=== PATIENT | male | born 1970 | race Caucasian/White ===

== ENCOUNTER → 2024-02-04 10:55 | Outpatient (REF) | payer OTHER, SELFPAY | LOC: RAD 10:55 | PROVIDERS: ATTENDING PHYSICIAN Surgery; FAMILY PHYSICIAN Nurse Practitioner Acute Care | DX: R10.31 Right lower quadrant pain (principal) | CPT/HCPCS: 74176 ==

== ENCOUNTER 2024-02-28 20:59 | Emergency (ER) | payer OTHER, SELFPAY ==
[2024-02-28 21:09] VITALS: BP 95/64
[2024-02-28 22:11] VITALS: BP 115/76
--- NOTE | 2024-02-28 22:15 | ED.GENMED ---
History of Present Illness
<PETRA Cheng - Last Filed: 02/28/24 22:53>
General
Chief Complaint: Abdominal Pain
Source: patient
Exam Limitations: none
Time Seen by Provider: 02/28/24 21:58
Nursing documentation reviewed up to this point in time: agreed with
Travel History
Have you had any contact with someone who has COVID-19?: No
Do you have any symptoms of coronavirus? Fever > 100 degrees, chills, cough, shortness of breath, sore throat, loss of taste or smell, muscle aches, or headache?: No
History of Present Illness
History of Present Illness:
Patient is a 53 y/o male with history of substance abuse, COPD, GERD presenting with Right groin pain x 1 day. Patient has a history of a known right inguinal hernia that has previously been reducible and is scheduled for surgery. Patient is unaware
of exact date of surgery. Patient admits that He has had a previous hernia repair in his right groin before. Patient states the pain started last night when he was coughing. Patient states the cough makes the pain worse. Patient describes the pain
as sharp and radiates down his inner leg. Patient states this is the worst pain he has ever felt. Patient states he can feel something 'passing through' the bulge. Patient denies N/V/D/C, changes with urination, SOB, Cp, HURT, fever, chills, or change
in bowel movement. Patient is currently in a rehab facility and denies use of alcohol, tobacco or other illicit drugs.
Past History
<PETRA Cheng - Last Filed: 02/28/24 22:53>
Past History
ED Past Medical History: COPD, GERD, NC ( X 2), Psychiatric (Depression. Anxiety) and Other (Migraine)
ED Past Surgical History: Orthopedic (Right hip replacement) and Other (Bilateral hernia's)
Social History
Tobacco: Smoker
Alcohol: Former
Drug: Former user
Personal:
Living: other ([facility])
Review of Systems
<PETRA Cheng - Last Filed: 02/28/24 22:53>
Review of Systems
Constitutional: Reports no symptoms
EENT: Reports other (patient wears denture )
Respiratory: Reports cough
Cardiac: Reports no symptoms
ABD/GI: Reports abdominal pain (right groin) and other (bulge in right groin)
Skin: Reports no symptoms
Phy Exam
<PETRA Cheng - Last Filed: 02/28/24 22:53>
General Physical Exam
General Presentation: well appearing and no apparent distress
General Skin: warm and dry
General Habitus: normal
General Mental: alert
General Hydration: appears well hydrated
ENT Exam
ENT Exam: EOMI, pharynx normal, neck supple and normocephalic
Eye Exam
Eye Exam: PERRL, cornea clear and conjunctiva normal
Cardiovascular Exam
Cardiovascular Exam: regular rate/rhythm, no edema, no murmur and normal peripheral pulses
Pulmonary Exam
Pulmonary Exam: lungs clear, no respiratory distress, no rales, no crackles, no rhonchi, no stridor, no wheezing and no cough
Gastrointestinal Exam
Gastrointestinal Exam: normal bowel sounds, non tender, soft, no organomegaly, no pulsatile mass and non distended
Genitourinary Exam Male
Exam Male: normal external genitalia and other (bulge noted in right groin with tenderness to palpation, no erythema or warmth noted )
Neurological Exam
Neurological Exam: alert, oriented x3, no motor deficits and speech normal
Musculoskeletal Exam
Musculoskeletal Exam: full ROM and no edema
Skin Exam
Skin Exam: normal color, warm/dry, no rash and no petechia
Psychiatric Exam
Psychiatric Exam: normal mood/affect
Course
<PETRA Cheng - Last Filed: 02/28/24 22:53>
Vital Signs
Initial and Last Documented VS:
Initial Vital Signs
Temp Pulse Resp BP Pulse Ox
98.1 F 80 18 95/64 94
02/28/24 21:09 02/28/24 21:09 02/28/24 21:09 02/28/24 21:09 02/28/24 21:09
Last Documented Vital Signs
Temp Pulse Resp BP Pulse Ox
98.1 F 72 18 115/76 96
02/28/24 21:09 02/28/24 22:11 02/28/24 22:11 02/28/24 22:11 02/28/24 22:11
<Juanito Mena DO - Last Filed: 02/28/24 23:01>
Vital Signs
Initial and Last Documented VS:
Initial Vital Signs
Temp Pulse Resp BP Pulse Ox
98.1 F 80 18 95/64 94
02/28/24 21:09 02/28/24 21:09 02/28/24 21:09 02/28/24 21:09 02/28/24 21:09
Last Documented Vital Signs
Temp Pulse Resp BP Pulse Ox
98.1 F 72 18 115/76 96
02/28/24 21:09 02/28/24 22:11 02/28/24 22:11 02/28/24 22:11 02/28/24 22:11
<PETRA Cheng - Last Filed: 02/28/24 22:53>
MDM/Problems Addressed
Differential Diagnosis Includes:
strangulated inguinal hernia
incarcerated inguinal hernia
MDM/Problems Addressed:
right groin bulge
<PETRA Cheng - Last Filed: 02/28/24 22:53>
*Critical Care Note
Total Time (30-74mins, 75-104mins- exclusive of procedures): Not Applicable
ED Attending Note
Bayronlt;Cecilia TimPETRA - Last Filed: 02/28/24 22:53>
-
Portions of this chart may have been created with voice recognition software.� Occasional wrong word or��sound alike� substitutions may have occurred due to the inherent limitations of voice recognition software.
<Juanito Mena DO - Last Filed: 02/28/24 23:01>
ED Attending Note
Patient seen and examined by attending physician: Yes
I performed the substantive portion of visit, reviewed & personally made and approve the management plan that is documented in note by myself or ROGE.: Yes
ED Attending Note:
This a pleasant 53-year-old male that presents with right inguinal hernia pain. He has known inguinal hernia and is scheduled for surgery. He states that the surgery is in the next few weeks but is unsure of what it is. Patient reported
exacerbation of his pain last evening, while coughing. He states that when coughing the pain is severe. Currently he is in no pain. Patient resides at a rehab facility. Denies fever, chills, nausea or vomiting. States that he has normal bowel
movements. Denies changes with urination. Patient was seen in conjunction with the PA student. I have reviewed and agree with the history and treatment plan presented. On my independent physical exam, patient is awake, alert, and oriented x3, no
acute distress. Dressed and ready to go. On physical exam patient has a right inguinal hernia. It was slightly bulging but easily reducible. It was soft, and nontender to palpation or reduction. Patient has no other complaints. He will be
discharged to follow-up with general surgery. I did advise him to call the office to find out when his procedure is.
Discharge Plan
Departure
Patient Disposition: Home (Routine Discharge)
Date of Disposition: 02/28/24
Time of Disposition: 22:59
Patient with high blood pressure during this ER visit?: No
Condition: Good
Discharge Problem:
Inguinal hernia, right
Instructions: Groin Hernia (DC)
Referrals:
Pellini,Graeme M., MD [Active] - (Please call the office to determine the date of your surgery)
UNKNOWN - PT DOES,NOT KNOW [Family Provider] -
Activity Restrictions/Additional Instructions:
It was a pleasure meeting you and taking part in your care. We hope for your continued healing and wellness.
Please read discharge instructions in their entirety. However, they are for general education and may not describe your exact diagnosis at discharge. Information on your ER visit and medical conditions were discussed with you along with appropriate
follow up information...
If indicated, please take your medications as instructed and indicated on discharge paperwork.
Please schedule a follow up appointment as directed. Call to schedule an appointment
Please return to the emergency department with ANY change in, persisting, or worsening of symptoms. If any of your symptoms do not improve, or persist, or become more severe within 6-12 hours, please return to the emergency department for further
care.
Please return to the emergency department if you develop a headache, neck pain/stiffness, fever greater than 100.4F, chest pain, shortness of breath, persistent nausea, vomiting, slurred speech, difficulty walking, numbness/tingling, weakness, signs
of infection or any other symptoms that are worrisome to you.
If you have any questions or concerns please do not hesitate to call the Hospital at or E-mail me directly at [email or web address]
Interventions
Interventions:
*Risk Screen - Suicide Last Done: 02/28/24 21:09
*General Assessment Last Done: 02/28/24 22:14
*Neglect/Abuse Screening Last Done: 02/28/24 21:09
ED- Fall Risk Assessment Last Done: 02/28/24 22:13
*ED COVID-19 Vaccine History Last Done: 02/28/24 22:14
FC-Phgshp-Sxkxuubshn Assessment Last Done: 02/28/24 22:13
Discharge Date and Time
Print Language: LUXEMBOURGISH
[2024-02-28 23:02] VITALS: BP 115/76
== END 2024-02-28 23:07 | disposition home or self-care (01) ==
LOC: EMR 20:59
PROVIDERS: EMERGENCY PHYSICIAN Student in an Organized Health Care Education/Training Program
DX: K40.90 Unilateral inguinal hernia, without obstruction or gangrene, not specified as recurrent (principal); F17.200 Nicotine dependence, unspecified, uncomplicated
CPT/HCPCS: 99283

== ENCOUNTER → 2024-03-10 13:27 | Outpatient (REF) | payer OTHER, SELFPAY | LOC: HWRAD 13:27 | PROVIDERS: ATTENDING PHYSICIAN Nurse Practitioner Acute Care | DX: R06.00 Dyspnea, unspecified (principal); J44.9 Chronic obstructive pulmonary disease, unspecified | CPT/HCPCS: 71046 ==

== ENCOUNTER 2024-03-24 06:02 | Day surgery (SDC) | payer OTHER, SELFPAY ==
[2024-03-15 08:58] VITALS: BMI 21.7
[2024-03-24] VITALS (11 sets, daily range): BP systolic 98–121; BP diastolic 58–77; BMI 21.7
[2024-03-24] MEDS: TYLENOL 1000 MG PO (06:58)
[2024-03-24] MEDS: NORMOSOL-R 1000 IV (06:59)
--- NOTE | 2024-03-24 07:16 | W.SUR.PREOP ---
Pre-Operative Surgical Note
-
I have examined this patient prior to the performance of the scheduled procedure.
The patient's condition is unchanged from the time of the current History and
Physical and the patient is able to undergo the scheduled procedure.
--- NOTE | 2024-03-24 09:00 | W.IMMPOSTOP ---
Surgical Immed Post Op Note
-
Primary Surgeon: Galdino Arreola MD
Assisting Surgeon: None
Pre-op Diagnosis: Recurrent right inguinal hernia
Post-op Diagnosis: Same
Procedure Performed: Robotic recurrent right inguinal hernia repair with mesh
Anesthesia Type: General
Specimen / Cultures: None
Estimated Blood Loss: 3 cc
Complications: None
Operative Findings: Medium sized indirect inguinal hernia defect. No direct or femoral components. Floor reinforced with a large right 3D max mid weight mesh.
POST OP PLAN:
Will discharge after voiding.
--- NOTE | 2024-03-24 09:02 | OR.RPT ---
Operative Report
Operative Report
Patient Name: Juanito Dsouza
: 1970
Date of Operation: 03/24/2024
Preoperative Diagnosis: Recurrent inguinal hernia, right
Postoperative Diagnosis: Same
Procedure(s):
Robotic recurrent right inguinal Hernia Repair with mesh, (SAMMY approach)
Surgeon(s):
Dr. Arreola
Senior Software Engineering Manager(s):
JOSUE Linder
Anesthesia: General
Estimated Blood Loss: [3] cc
Urine Output: None
Drains/Lines/Implants: Large 3D Max Bard mid weight mesh
Specimens: None
Indication for surgery: The patient has a history of groin pain and noted on exam to have a right Inguinal Hernia in the setting of a previous open repair. Following review of therapeutic options they has elected to undergo a minimally invasive
repair.
Findings at the time of surgery:
Patient had [an Indirect] Inguinal Hernia. There was no direct or femoral components. No cord lipoma. The inguinal floor was reinforced with a large BARD 3D max mid-weight mesh
Details of the operation:
The patient was brought to the Operating Room and placed in the supine position with the arms tucked. IV antibiotics were infused and Venodyne stockings placed. Following uneventful induction of general endotracheal anesthesia, an orogastric tube
were placed. The abdomen was prepped and draped in the usual sterile fashion. The abdomen was entered using a Veress technique which required [1] pass(es), pneumoperitoneum to 15 mmHg was obtained without difficulty. A 8mm trochar was passed
through the abdominal wall roughly 20 cm cephalad to the inguinal canal. We then confirmed that no inadvertent injury was made while passing the trocar or Veress needle. We then placed two additional 8 mm ports in the left upper and right upper
quadrants, taking care to avoid his previous PEG tube site which was left in place. We then docked the robot with a Prograsper in the left hand port and monopolar scissors in the right. There was no hernia noted on the left side, there was an
indirect defect on the right with no contents. We then began by creating a flap at the level of the ASIS laterally working our way medially to the medial umbilical fold. Staying onto the peritoneum we were able to circumferentially dissect around
the hernia sac and and peel it off of the underlying [spermatic cord and testicular vessels, taking care to preserve them]. Medially we identified the midline pubis as well as Murali's ligament and ensured to dissect 2 cm below the pubic rim over
the bladder. After exposure of the entire myopectineal orifice we identified and reduced: [A medium sized indirect inguinal hernia, no direct inguinal hernia, no femoral hernia, no cord lipoma.] A 4 x 4 sponge was briefly introduced into the
abdomen to help blot up some bleeding but this was minimal and the gauze was removed.
We then fixated a large 3D max mesh with a 2-0 Vicryl stitch at coopers medially and superiorly. The flap was then closed with a running 2-0 barbed monocryl suture ensuring that the tail was cut flush with the medial fat pad so that no barbs were
exposed. During the closure of the flap an Angiocath was inserted and 20 cc of quarter percent Marcaine was instilled. The area in the flap cavity was then evacuated of air confirming that the mesh was flush and there were no folds. No rent in
the peritoneum was noted. All needles and instruments were then removed and the robot was undocked. The abdomen was then desufflated, and pneumoperitoneum evacuated. All skin sites were then closed with 4-0 Monocryl followed by Dermabond. Counts
were correct and overall, the patient tolerated the procedure well and was taken to the Recovery Room postoperatively in stable condition.
I was the attending physician and performed the procedure with assistance of the PA above. The assistance of Teri Treadwell was required due to the complexity of the procedure. During the procedure Teri assisted with retraction, resection, passing
sutures and mesh and closure of the wound.
Dinorah was present for all portions of the case
Galdino Arreola MD
[2024-03-24] MEDS: DILAUDID 0.5 MG IV ×2 (09:30→09:50)
== END 2024-03-24 10:55 | disposition home or self-care (01) ==
LOC: SDS 06:02
PROVIDERS: ATTENDING PHYSICIAN Surgery
DX: K40.91 Unilateral inguinal hernia, without obstruction or gangrene, recurrent (principal)
CPT/HCPCS: 49651; 36415; 93005; C1781

== ENCOUNTER → 2024-04-14 11:05 | Outpatient (REF) | payer OTHER, SELFPAY | LOC: RAD 11:05 | PROVIDERS: ATTENDING PHYSICIAN Internal Medicine Critical Care Medicine | DX: R91.8 Other nonspecific abnormal finding of lung field (principal); F17.200 Nicotine dependence, unspecified, uncomplicated | CPT/HCPCS: 71250 ==